=== PATIENT | male | born 1965 | race Caucasian/White ===

== ENCOUNTER 2019-06-02 11:23 | Emergency (ER) | payer BC ==
[~2019-06-02] VITALS: Ht 167.6 cm; Wt 86.2 kg
[2019-06-02] MEDS ORDERED: LIDOCAINE 1% PF 2 ML VIAL. ONE (11:39)
--- NOTE | 2019-06-02 11:44 | PHYS DOC ---
Past Medical History Past Medical History: Diabetes-Type I Adult General Chief Complaint Chief Complaint: PARTIAL AMPUTATION/AVULSION HPI HPI Patient is a 54-year-old, right-handed male who presents to the emergency department for evaluation. He states he was using a drill just prior to arrival, when the drill caught on his glove, causing his left pinky finger to be forcefully extended, to the point that he suffered a laceration on the volar surface of his finger at the PIP joint and appears to have a dislocation at the PIP joint, with the articular surface of the proximal phalanx visible in the wound. He is able to feel light touch on the left pinky finger, and capillary refill is intact. He is able to flex and extend his MCP joint, and denies any other injuries. The remainder of his hand and fingers are atraumatic. His last tetanus was within the past 2 years. There are no alleviating factors to his symptoms, movement seems to worsen his pain. Review of Systems Review of Systems Constitutional: Denies fever or chills [] Musculoskeletal: Denies back pain or joint pain, other than as noted in the history of present illness [] Integument: Denies rash or skin lesions [] Neurologic: Denies headache, focal weakness or sensory changes [] Current Medications Current Medications Current Medications Medications (Trade) Dose Ordered Sig/Ilana Start Time Stop Time Status Last Admin Dose Admin Bacitracin (Bacitracin Zinc Oint Pkt) 1 pkt 1X ONCE 06/02/19 13:45 06/02/19 13:46 DC 06/02/19 14:03 1 PKT Bupivacaine HCl (Sensorcaine Mpf 0.5%) 30 ml 1X ONCE 06/02/19 11:45 06/02/19 11:46 DC 06/02/19 12:03 30 ML Lidocaine HCl (Lidocaine 1% 20ml Vial) 20 ml 1X ONCE 06/02/19 11:45 06/02/19 11:46 DC 06/02/19 12:03 20 ML Lidocaine HCl (Xylocaine-Mpf 1% 2ml Vial) 2 ml STK-MED ONCE 06/02/19 11:39 06/02/19 11:44 DC Lidocaine HCl (Xylocaine-Mpf 1% 5ml Vial) 10 ml 1X ONCE 06/02/19 12:00 06/02/19 12:01 DC Allergies Allergies Allergies Coded Allergies Type Severity Reaction Last Updated Verified No Known Drug Allergies 06/02/19 No Physical Exam Physical Exam PHYSICAL EXAM: HEENT: Atruamatic NECK: Supple, normal ROM, non-tender. CARDIAC: Regular Rate and Rhythm LUNGS: Clear Bilaterally EXTREMITIES: There is a 3 cm somewhat jagged laceration on the volar surface of the left pinky finger, with a bone fragment with a smooth surface visible through the wound, which is likely the distal articular surface of the proximal phalanx. There is deformity noted to the DIP joint with the joint held in somewhat forced extension. Distal capillary refill and sensation are normal in the left pinky finger. The remainder of the digits and hand is atraumatic. Current Patient Data Vital Signs Vital Signs Date Time Temp Pulse Resp B/P (MAP) Pulse Ox O2 Delivery O2 Flow Rate FiO2 06/02/19 12:06 64 17 144/82 (102) 97 Room Air 06/02/19 11:28 98.0 98.0 EKG EKG [] Radiology/Procedures Radiology/Procedures PROCEDURE: FINGER(S) LEFT Left fifth finger 3 views. HISTORY: Injury fifth finger 3 views were taken of the left fifth finger. There is a dislocation of the finger at the PIP joint. There is a calcific density anterior to the distal aspect of the proximal phalanx suggesting a small avulsion fracture. No other fracture is noted. IMPRESSION: 1. Dislocation at the PIP joint of the fifth left finger. PROCEDURE: FINGER(S) LEFT Examination: FINGER(S) LEFT History: Pain, post reduction Comparison/Correlation: Left fifth digit x-ray exam 06/02/2019 performed earlier Findings: Total of 3 images of the left hand were obtained with portable technique. Joint spaces are unremarkable. Interval reduction of the fifth digit proximal interphalangeal joint dislocation previously seen is noted. Soft tissues are grossly unremarkable. There is a calcific density involving the fifth digit proximal phalanx of the distal aspect corresponding to the avulsion fracture reported on the previous exam. This finding is not well delineated on the lateral view due to overlapping anatomic structures. Impression: Successful reduction of the fifth digit proximal interphalangeal joint dislocation. Avulsion fracture fragment again seen.[] Course & Med Decision Making Course & Med Decision Making Pertinent Imaging studies reviewed. (See chart for details) LACERATION PROCEDURE NOTE, and JOINT REDUCTION NOTE: A digital block was placed using 5 mL of a one-to-one mixture of 0.5% Marcaine and 1% lidocaine, both without epinephrine. Good anesthesia was obtained. The wound was irrigated copiously with normal saline, and the joint dislocation was reduced with axial traction without any difficulty. Postreduction the patient was able to fully flex and extend his pinky finger, and all joints flexed fully when tested against resistance, suggesting integrity of the flexor tendons remains intact. The 3 cm laceration was irrigated copiously with normal saline both pre-and postreduction, prepped with Betadine, and draped in sterile drapes. 8 running interlocking 4-0 nylon sutures were placed in the wound, with good epithelial approximation. The wound was dressed with anabolic ointment and a sterile dressing, and an ulnar gutter splint was placed, per orthopedic surgery request. The splint was placed by ER nursing staff and inspected by me postplacement. Patient remained neurovascularly intact postplacement, post reduction capillary refill in the digits were intact. Sensation was intact, with the exception of the right pinky finger which was still under regional anesthetic. 12:00 PM: I spoke with Dr. Herring,, hand surgery at , who would like to see the patient on Sunday in follow-up. Agree with management in the emergency department. Dragon Disclaimer Dragon Disclaimer This electronic medical record was generated, in whole or in part, using a voice recognition dictation system. Departure Departure Impression: Primary Impression: Finger laceration Additional Impression: Open dislocation of phalanx of hand Disposition: 01 HOME, SELF-CARE Condition: STABLE Referrals: UNKNOWN PCP NAME (PCP) Patient Instructions: Finger Dislocation, Finger Dislocation-SportsMed, Laceration Care, Adult Additional Instructions: Keep wound clean and dry. Follow-up with Dr. Herring, hand surgery, at , call [phone], to schedule an appointment for this coming Sunday. Scripts Cephalexin (KEFLEX) 500 Mg Capsule 500 MG PO QID for 7 Days, #28 CAP Prov: WERNER PATEL MD 06/02/19 Problem Qualifiers WERNER PATEL MD Jun 02, 2019 11:44
[2019-06-02] MEDS ORDERED: BUPIVACAINE MPF 0.5% 30 ML VIAL. INJ ONE (11:45)
[2019-06-02] MEDS ORDERED: LIDOCAINE 1% Multi-Dose 20 ML VIAL. INJ ONE (11:45)
[2019-06-02] MEDS ORDERED: LIDOCAINE 1% PF 5 ML VIAL. INJ ONE (12:00)
--- NOTE | 2019-06-02 12:17 | RAD ---
Left fifth finger 3 views. HISTORY: Injury fifth finger 3 views were taken of the left fifth finger. There is a dislocation of the finger at the PIP joint. There is a calcific density anterior to the distal aspect of the proximal phalanx suggesting a small avulsion fracture. No other fracture is noted. IMPRESSION: 1. Dislocation at the PIP joint of the fifth left finger. Electronically signed by: Krystian Kennedy MD (06/02/2019 12:09 PM) [id number]
[2019-06-02] MEDS ORDERED: BACITRACIN TOPICAL OINT PACKET. TP ONE (13:45)
--- NOTE | 2019-06-02 13:56 | RAD ---
Examination: FINGER(S) LEFT History: Pain, post reduction Comparison/Correlation: Left fifth digit x-ray exam 06/02/2019 performed earlier Findings: Total of 3 images of the left hand were obtained with portable technique. Joint spaces are unremarkable. Interval reduction of the fifth digit proximal interphalangeal joint dislocation previously seen is noted. Soft tissues are grossly unremarkable. There is a calcific density involving the fifth digit proximal phalanx of the distal aspect corresponding to the avulsion fracture reported on the previous exam. This finding is not well delineated on the lateral view due to overlapping anatomic structures. Impression: Successful reduction of the fifth digit proximal interphalangeal joint dislocation. Avulsion fracture fragment again seen. Electronically signed by: Bruno Godfrey MD (06/02/2019 1:53 PM) [facility]
[2019-06-02] MEDS ORDERED: CEPH-264 PO (14:10)
[2019-06-02 14:12] VITALS: BP 147/75
[2019-06-02] MEDS ORDERED: OXYC-325 PO (14:17)
== END 2019-06-02 14:32 | disposition home or self-care (01) ==
LOC: ER 11:23
DX: S61.217A Laceration without foreign body of left little finger without damage to nail, initial encounter (principal); S63.287A Dislocation of proximal interphalangeal joint of left little finger, initial encounter; S63.257A Unspecified dislocation of left little finger, initial encounter; E10.8 Type 1 diabetes mellitus with unspecified complications; W23.0XXA Caught, crushed, jammed, or pinched between moving objects, initial encounter; Y93.89 Activity, other specified; Y92.89 Other specified places as the place of occurrence of the external cause; Y99.8 Other external cause status
CPT/HCPCS: 26770; 73140; 99285; J3490; 12002; 96374